=== PATIENT | female | born 1975 | race Caucasian/White ===

== ENCOUNTER 2021-12-21 11:32 | Emergency (ER) | payer OTHER ==
[~2021-12-21] VITALS: Ht 175.3 cm; Wt 81.8 kg
[2021-12-21] MEDS ORDERED: LEVO200 PO ×2 (12:20→13:01)
[2021-12-21] MEDS ORDERED: BUPR1FIL5 SL (12:20)
[2021-12-21] MEDS ORDERED: FLUO10CA24 PO ×2 (12:20→13:01)
[2021-12-21] MEDS ORDERED: LISI-893 PO ×2 (12:20→13:01)
[2021-12-21] MEDS ORDERED: ZOLP-280 PO (12:20)
[2021-12-21 12:58] VITALS: BP 156/91
[2021-12-21] MEDS ORDERED: BUPRENORPHINE HCL/NALOXONE HCL 8-2 MG SUBLINGUAL TABLET SL ONE (13:15)
== END 2021-12-21 13:12 | disposition home or self-care (01) ==
LOC: EMS 11:37
DX: F11.20 Opioid dependence, uncomplicated (principal); F32.A Depression, unspecified; I10 Essential (primary) hypertension; E03.9 Hypothyroidism, unspecified; Z90.49 Acquired absence of other specified parts of digestive tract; Z98.890 Other specified postprocedural states; Z88.0 Allergy status to penicillin; Z88.1 Allergy status to other antibiotic agents
CPT/HCPCS: 99283

== ENCOUNTER 2022-11-28 10:57 | Inpatient (IN) | payer OTHER ==
[~2022-11-28] VITALS: Ht 175.3 cm; Wt 106.5 kg
[~2022-11-28 10:57] MED LIST: BUPR1FIL5 SL; FLUO10CA24 PO; LEVO200 PO; LISI-893 PO; ZOLP-280 PO
[2022-11-28] MEDS ORDERED: IOHEXOL 350 MG/ML 100 ML VIAL ONE (11:04)
[2022-11-28] MEDS ORDERED: SODIUM CHLORIDE 0.9% 100 ML ONE (11:05)
[2022-11-28 11:39] LABS: BASOPHILS % (AUTO) 0.5 % (0.0-2.0); EOSINOPHILS % (AUTO) 1.8 % (1.0-6.0); HEMOGLOBIN 13.3 g/dL (12.0-16.0); MEAN CORPUSCULAR HEMOGLOBIN 28.6 pg (26.0-34.0); MEAN CORPUSCULAR HGB CONC 31.7 G/dL (31.0-37.0); MEAN CORPUSCULAR VOLUME 90 fL (80-100); MONOCYTES # (AUTO) 0.4 K/uL (0.1-1.0); NEUTROPHILS # (AUTO) 3.6 K/uL (1.8-7.7); NEUTROPHILS % (AUTO) 57.7 % (40.0-70.0); PLATELET COUNT (AUTO) 261 K/uL (150-450); RED BLOOD CELL COUNT(AUTO) 4.66 MIL/uL (4.00-5.20); RED CELL DISTRIBUTION WIDTH 15.4 % (11.5-14.5)
[2022-11-28 11:45] LABS: ANION GAP 11 mmol/L (8-16); CARBON DIOXIDE 25 mmol/L (22-29); CHLORIDE 103 mmol/L (98-107); CREATININE 0.92 mg/dL (0.60-1.30); GLOMERULAR FILTR. RATE CALC > 60 mL/min (>60); GLUCOSE,RANDOM 71 mg/dL (70-110); POTASSIUM 3.4 mmol/L (3.5-5.1); SODIUM SERUM 139 mmol/L (136-145)
[2022-11-28 11:46] LABS: CALCIUM, TOTAL 9.5 mg/dL (8.8-10.5)
[2022-11-28 11:47] LABS: PROTHROMBIN TIME 10.3 SEC (9.4-11.6)
[2022-11-28 11:54] LABS: B-TYPE NATRIURETIC PEPTIDE 20 pg/mL (0-100)
[2022-11-28 11:58] LABS: ALANINE AMINOTRANSFERASE 23 U/L (12-78); ALBUMIN 3.9 g/dL (3.4-5.0); ALKALINE PHOSPHATASE 88 U/L (46-116); ASPARTATE AMINOTRANSFERASE 28 U/L (15-37); BILIRUBIN,TOTAL 0.3 mg/dL (0.1-1.0); TOTAL PROTEIN, SERUM 7.4 g/dL (6.4-8.2)
[2022-11-28] MEDS ORDERED: ACETAMINOPHEN 500 MG TABLET PO ONE (12:15)
[2022-11-28] MEDS ORDERED: MAG HYDROX/AL HYDROX/SIMETH 30 ML SUSP UDCUP PO ONE (12:15)
[2022-11-28] MEDS ORDERED: ONDANSETRON HCL 4 MG/2 ML VIAL IVP PRN ×2 (12:15→13:15)
[2022-11-28] MEDS ORDERED: ACETAMINOPHEN 325 MG TABLET PO PRN (12:15)
[2022-11-28] MEDS ORDERED: 0.9% SODIUM CHLORIDE 10 ML SYRINGE IVP PRN (12:15)
[2022-11-28] MEDS ORDERED: FAMOTIDINE 20 MG/2 ML VIAL IVP ONE (12:15)
[2022-11-28 12:33] LABS: HCG,QUANTITATIVE 3 mIU/mL (0-6)
[2022-11-28 12:47] LABS: APPEARANCE,URINE CLEAR (CLEAR); BACTERIA,URINE None Seen /HPF (None Seen); BILIRUBIN,URINE NEGATIVE (NEGATIVE); GLUCOSE, URINE (UA) NEGATIVE (NEGATIVE); KETONES,URINE NEGATIVE (NEGATIVE); LEUKOCYTE ESTERASE ,URINE NEGATIVE (NEGATIVE); NITRATE,URINE NEGATIVE (NEGATIVE); OCCULT BLOOD,URINE NEGATIVE (NEGATIVE); PH,URINE 6.5 (5.0-8.0); PROTEIN,URINE NEGATIVE (NEGATIVE); RBC,URINE None Seen /HPF (0-2); SPECIFIC GRAVITIY, URINE 1.024 (1.003-1.030); SQUAMOUS EPITHELIAL CELL,UR Rare /LPF (None Seen); UROBILINOGEN,URINE <=1.0 mg/dL (<=1.0); WBC,URINE None Seen /HPF (0-5)
[2022-11-28] MEDS ORDERED: ZOLPIDEM TARTRATE 5 MG TABLET PO PRN (13:15)
[2022-11-28] MEDS ORDERED: MAGNESIUM HYDROXIDE SUSPENSION 30 ML UDCUP PO PRN (13:15)
[2022-11-28] MEDS ORDERED: BISACODYL 10 MG RECTAL RECTAL SUPPOSITORY PR PRN (13:15)
[2022-11-28] MEDS ORDERED: HYDROCODONE/ACETAMINOPHEN 5-325 MG TABLET PO PRN (13:15)
[2022-11-28] MEDS: MORPHINE SULFATE 2 MG/ML SYRINGE IVP PRN ×3 (13:30→21:19)
[2022-11-28] MEDS: AmLODIPine BESYLATE 5 MG TABLET PO SCH (13:41)
[2022-11-28] MEDS ORDERED: LORazepam 2 MG/ML VIAL IVP ONE (15:20)
[2022-11-28] MEDS ORDERED: MIDAZOLAM HCL 5 MG/ML VIAL ONE (15:56)
[2022-11-28] MEDS: MIDAZOLAM HCL 5 MG/ML VIAL IVP ONE ×2 (16:05→16:52)
[2022-11-28] MEDS: HEPARIN SODIUM,PORCINE 5,000 UNITS/ML VIAL SQ SCH ×2 (17:19→23:14)
[2022-11-28] MEDS ORDERED: LIDO700A30 TP (19:11)
[2022-11-28] MEDS ORDERED: OLAN10TA74 PO (19:11)
[2022-11-28] MEDS ORDERED: FLUO40CA PO (19:11)
[2022-11-28] MEDS ORDERED: OXYC5TAB3 PO (19:11)
[2022-11-28] MEDS ORDERED: LEVO200T10 PO (19:11)
[2022-11-28] MEDS ORDERED: FLUO20CA36 PO (19:11)
[2022-11-28] MEDS ORDERED: LISI10TA24 PO (19:11)
[2022-11-28] MEDS ORDERED: OXYC1TAB6 PO (19:11)
[2022-11-28] MEDS ORDERED: CLOP75TA32 PO (19:11)
[2022-11-28] MEDS ORDERED: CHOL500013 PO (19:11)
[2022-11-28] MEDS ORDERED: CYCL10TA16 PO (19:11)
[2022-11-28] MEDS ORDERED: ATOR-2 PO (19:11)
[2022-11-28] MEDS ORDERED: LEVO175T9 PO (19:11)
[2022-11-28] MEDS: ACETAMINOPHEN 325 MG TABLET PO PRN (19:16)
[2022-11-28] MEDS ORDERED: ATORVASTATIN CALCIUM 20 MG TABLET PO SCH (21:00)
[2022-11-28] MEDS: DOCUSATE SODIUM 100 MG CAPSULE PO SCH (21:19)
[2022-11-29] MEDS: MORPHINE SULFATE 2 MG/ML SYRINGE IVP PRN ×2 (02:31→07:42)
[2022-11-29] MEDS: ACETAMINOPHEN 325 MG TABLET PO PRN (05:21)
[2022-11-29] MEDS ORDERED: LEVOTHYROXINE SODIUM 75 MCG TABLET PO SCH (06:30)
[2022-11-29] MEDS: HEPARIN SODIUM,PORCINE 5,000 UNITS/ML VIAL SQ SCH (07:41)
[2022-11-29 08:12] LABS: BASOPHILS % (AUTO) 3.1 % (0.0-2.0); HEMATOCRIT 40.2 % (36-46); HEMOGLOBIN 13.2 g/dL (12.0-16.0); LYMPHOCYTES # (AUTO) 1.4 K/uL (1.0-4.8); LYMPHOCYTES % (AUTO) 32.8 % (22.0-44.0); MEAN CORPUSCULAR HEMOGLOBIN 29.5 pg (26.0-34.0); MEAN CORPUSCULAR HGB CONC 32.8 G/dL (31.0-37.0); MEAN CORPUSCULAR VOLUME 90 fL (80-100); MONOCYTES # (AUTO) 0.3 K/uL (0.1-1.0); MONOCYTES % (AUTO) 6.1 % (2.0-9.0); NEUTROPHILS # (AUTO) 2.4 K/uL (1.8-7.7); PLATELET COUNT (AUTO) 231 K/uL (150-450); RED BLOOD CELL COUNT(AUTO) 4.47 MIL/uL (4.00-5.20); RED CELL DISTRIBUTION WIDTH 15.4 % (11.5-14.5)
[2022-11-29] MEDS: AmLODIPine BESYLATE 5 MG TABLET PO SCH (08:42)
[2022-11-29] MEDS: DOCUSATE SODIUM 100 MG CAPSULE PO SCH (08:43)
[2022-11-29 08:45] LABS: ALANINE AMINOTRANSFERASE 25 U/L (12-78); ALBUMIN 3.5 g/dL (3.4-5.0); ALKALINE PHOSPHATASE 83 U/L (46-116); ANION GAP 11 mmol/L (8-16); ASPARTATE AMINOTRANSFERASE 31 U/L (15-37); BILIRUBIN,TOTAL 0.6 mg/dL (0.1-1.0); CALCIUM, TOTAL 9.1 mg/dL (8.8-10.5); CARBON DIOXIDE 25 mmol/L (22-29); CHLORIDE 103 mmol/L (98-107); GLOMERULAR FILTR. RATE CALC > 60 mL/min (>60); GLUCOSE,RANDOM 95 mg/dL (70-110); POTASSIUM 4.2 mmol/L (3.5-5.1); SODIUM SERUM 139 mmol/L (136-145); TOTAL PROTEIN, SERUM 6.8 g/dL (6.4-8.2)
[2022-11-29] MEDS ORDERED: ASPIRIN 81 MG CHEWABLE TABLET PO SCH (09:00)
[2022-11-29] MEDS ORDERED: PANTOPRAZOLE SODIUM 40 MG DR TABLET PO SCH (09:00)
[2022-11-29 09:59] VITALS: BP 127/57; PULSE 84; RESP 19; TEMP 97.6
[2022-11-29] MEDS ORDERED: IBUP-1506 PO (10:41)
[2022-11-29] MEDS ORDERED: ASPI81 PO (10:41)
[2022-11-29] MEDS ORDERED: LISI10TA24 PO (10:41)
[2022-11-30 08:06] LABS: LDL CHOLESTEROL DIRECT 132 mg/dL (0-99)
== END 2022-11-29 11:00 | disposition left against medical advice (07) | DRG 305 ==
LOC: EMS 10:58 → 5S 19:00
PROVIDERS: ADMIT Internal Medicine; ATTEND Internal Medicine
DX: I16.1 Hypertensive emergency (principal); I69.354 Hemiplegia and hemiparesis following cerebral infarction affecting left non-dominant side; I10 Essential (primary) hypertension; Z53.21 Procedure and treatment not carried out due to patient leaving prior to being seen by health care provider; E87.6 Hypokalemia; E03.9 Hypothyroidism, unspecified; E66.9 Obesity, unspecified; F32.A Depression, unspecified; E11.9 Type 2 diabetes mellitus without complications; R07.89 Other chest pain; Z98.84 Bariatric surgery status; Z68.34 Body mass index [BMI] 34.0-34.9, adult; Z88.0 Allergy status to penicillin; Z90.49 Acquired absence of other specified parts of digestive tract; Z79.82 Long term (current) use of aspirin; Z79.01 Long term (current) use of anticoagulants; Z79.899 Other long term (current) drug therapy
CPT/HCPCS: 70496; 70498; 70551; 71045; 80053; 81001; 82948; 83721; 83880; 84484; 84702; 85025; 85610; 85730; 86850; 86900; 86901; 92610; 93005; 93306; 97116; 97161; 97163; 97530; 99291; G0480; J1644; J2060; J2250; J2270; J2405; J3490; J7050; Q9967; 36415-L1; 36415-TC; 70450; 70450-TC